=== PATIENT | female | born 1950 | race Caucasian/White ===

== ENCOUNTER 2016-07-12 12:53 | Outpatient (CLI) | payer MEDICARE, OTHER ==
[~2016-07-12] VITALS: Ht 170.3 cm; Wt 120.4 kg
[~2016-07-12 12:53] MED LIST: 00186-0372-20 IH; ARMOUR THYROID120 MG PO; ARMOUR THYROID15 MG PO; BYETTA; CALCIUM CITRAT200 MG PO; CARDIZEM CD 12120 MG PO; CARDIZEM CD 24240 MG PO; CARTIA XT240 MG PO; CATAPRES-T0.2 MG/24 TD; CATAPRES-TTS 20.2 M1; CATAPRES0.2 MG PO; CO ENZYME Q-1050 MG PO; CO Q-1010 M1 PO; CORDARONE200 MG/TAB PO; COREG 3.123.125 MG/T PO; COUMADIN 5MG5 MG/TAB PO; COUMADIN 6MG6 MG/TAB PO; CRANBERRY FRUI405 MG PO; CUMIN PO; DAILY MULTIPLE1 T19 PO; DIOVAN/HCT 12.51 TAB PO; DIOVAN160 MG PO; ERY-TAB250 MG PO; FERROUS SU325 MG/TAB PO; FLEXERIL 1010 MG/TAB PO; FLONASEALLERGY NS; FORTAMET1000 MG PO; GLIPIZIDE2.5 MG PO; GLUCOPHAGE1000 MG PO; GLUCOPHAGE500 MG/TAB PO; GLUCOTROL10 MG PO; IMODIUM 2MG CAPS2 MG PO; LANTUS100 U/ML; LANTUS100 U/ML SC; LASIX 20MG TABL20 MG PO; LASIX 40MG TABL40 MG PO; LEVEMIR; LEVEMIR100 U/ML SQ; LEVOTHYROXIN0.112 MG PO; LEVOXYL0.125 MG PO; LEXAPRO 10MG10 MG PO; LIPITOR 40MG TA40 MG PO; LIPITOR20 MG PO; LISINOPRIL20 MG PO; LOVENOX 100100 MG/ML SQ; MILK THISTLE150 MG PO; MULTIPLE VITAMI1 CAP PO; MVI; NEURONTIN300 MG/CAP PO; NIACIN 250250 MG/CAP PO; OMEGA 31000 MG PO; PACERONE100 MG PO; PROAIR HFA0.09 MG/AC IH; QUESTRAN LIGH4 G/PKT PO; QUESTRAN LITE 41 PKT PO; QUESTRAN4 GM/9 GM; REGLAN 5MG T5 MG/TAB PO; REGLAN 5MG5 MG PO; ROBAXIN 50500 MG/TAB PO; SYNTHROID0.125 MG/T PO; TRILIPIX 135MG PO; VIT E PO; VITAMIN E200 I1 PO; VITAMIND3 5000 PO; VOLTAREN GEL 1%1 TU TP; VTAMINC250TA PO; ZESTRIL 20MG TA20 MG PO; ZYRTEC 10MG10 MG PO
[2016-07-12 13:42] VITALS: BP 109/93; PULSE 66
[2016-07-12] MEDS ORDERED: CARTIA XT120 MG PO (13:47)
[2016-07-12] MEDS ORDERED: PACERONE200 MG PO (13:51)
[2016-07-12] MEDS ORDERED: NEURONTIN100 MG/CAP PO (13:52)
[2016-07-12] MEDS ORDERED: [UNRECOGNIZED DRUG - CODE] IH (13:55)
[2016-07-12] MEDS ORDERED: ZYLOPRIM 300MG300 MG PO (13:56)
[2016-07-12] MEDS ORDERED: CUTIVATE0.05% TOP (13:57)
[2016-07-12] MEDS ORDERED: LUMIGAN 2.5 ML2.5 M1 OP (13:57)
[2016-07-12 14:46] VITALS: BP 145/71; PULSE 58
[2016-07-12] MEDS ORDERED: CEPHALEXIN500 M1 PO (14:54)
== END 2016-07-12 15:58 | disposition home or self-care (01) ==
LOC: COL.RAD 12:53
DX: I35.0 Nonrheumatic aortic (valve) stenosis (principal); I48.0 Paroxysmal atrial fibrillation; E78.5 Hyperlipidemia, unspecified; I10 Essential (primary) hypertension
CPT/HCPCS: C1764

== ENCOUNTER → 2016-11-22 | Outpatient (CLI) | payer MEDICARE, OTHER ==
[~2016-11-22] MED LIST changes: +CARTIA XT120 MG PO; +CEPHALEXIN500 M1 PO; +CUTIVATE0.05% TOP; +LUMIGAN 2.5 ML2.5 M1 OP; +NEURONTIN100 MG/CAP PO; +PACERONE200 MG PO; +ZYLOPRIM 300MG300 MG PO; +[UNRECOGNIZED DRUG - CODE] IH
== END ==
LOC: COL.PUL 07:06
DX: I27.2 Other secondary pulmonary hypertension (principal)

== ENCOUNTER → 2017-01-28 | Outpatient (CLI) | payer MEDICARE, OTHER | LOC: MC.RAD 11:34 | DX: Z12.31 Encounter for screening mammogram for malignant neoplasm of breast (principal) ==

== ENCOUNTER 2017-07-18 16:29 | Emergency (ER) | payer MEDICARE, OTHER ==
[~2017-07-18] VITALS: Ht 170.2 cm; Wt 112.3 kg
[~2017-07-18 16:29] MED LIST changes: +00186-0370-20 IH; -00186-0372-20 IH; +ALBUTEROL0.83 MG/ML IH; +ATROVENTNS0.03% NS; +INCRUSE EL62.5 MCG/A IH; +PRAVACHOL 40MG40 MG PO; +XALATAN EYE DROPS OU
[2017-07-18 16:36] VITALS: TEMP 101.1
[2017-07-18 17:06] LABS: BASO # 0.1 (0.0-0.2); BASO % 0.3 % (0.0-2.0); EOS # 0.1 (0.0-0.7); EOS % 0.3 % (0-4.0); GRAN # 16.8 (1.4-6.5); GRAN % 90.2 % (42.2-75.2); LYMPH # 0.5 (1.2-3.4); LYMPH % 2.9 % (20.0-51.0); MEAN CELL VOLUME 90 fl (80.0-100.0); MEAN CORPUSCULAR HGB CONC 32 g/dl (33.0-37.0); MEAN PLATELET VOLUME 13.7 fl (7.4-10.4); MONO # 1.1 (0.1-0.6); MONO % 5.9 % (1.7-9.3); PLATELET COUNT 177 K/mm3 (130-400); RED BLOOD COUNT 3.07 M/mm3 (4.10-5.30); REDCELL DISTRIBUTION WIDTH-CV 18.8 % (11.5-14.5)
[2017-07-18 17:09] LABS: HEMATOCRIT 27.6 % (37.0-47.0); HEMOGLOBIN 8.7 g/dl (12.5-16.0); MEAN CORPUSCULAR HEMOGLOBIN 28 pg (27.0-31.0)
[2017-07-18 17:09] LABS: ARTERIAL BLD GAS O2 SATURATION 85.1 % (92-100); ARTERIAL BLD GAS TCO2 CT 25.4; ARTERIAL BLOOD GAS HCO3 24.4 meq/L (22-26); ARTERIAL BLOOD GAS PCO2 33.9 mmHg (35-45); ARTERIAL BLOOD GAS PO2 51.4 mmHg (80-100); ARTERIAL BLOOD GAS pH 7.48 (7.35-7.45)
[2017-07-18 17:19] LABS: ALBUMIN 3.7 gm/dL (3.5-5.0); BILIRUBIN,TOTAL 1.2 mg/dL (0.0-1.0); CALCIUM 8.6 mg/dL (8.4-10.2); CREATININE, serum 2.6 mg/dL (0.52-1.25); POTASSIUM 5.5 mmol/L (3.4-5.0); TOTAL PROTEIN 7.7 gm/dL (6.4-8.2)
[2017-07-18] MEDS ORDERED: CATAPRES 0.1MG0.1 MG PO (17:20)
[2017-07-18] MEDS ORDERED: JANUVIA50 MG PO (17:22)
[2017-07-18] MEDS ORDERED: CORDARONE200 MG/TAB PO (17:23)
[2017-07-18] MEDS ORDERED: LEVEMIR FLEX100 U/ML SQ (17:25)
[2017-07-18] MEDS ORDERED: ZAROXOLYN 2.52.5 MG PO (17:25)
[2017-07-18 17:39] LABS: C-REACTIVE PROTEIN 18.7 mg/dL (0.0-0.9)
[2017-07-18 21:00] VITALS: BP 120/76; PULSE 68
== END 2017-07-18 21:00 | disposition short-term general hospital (02) ==
LOC: COL.ER 16:29
PROVIDERS: Family Medicine
DX: I50.9 Heart failure, unspecified (principal); N28.9 Disorder of kidney and ureter, unspecified; R09.02 Hypoxemia; I27.20 Pulmonary hypertension, unspecified; R06.02 Shortness of breath; E11.9 Type 2 diabetes mellitus without complications; J44.9 Chronic obstructive pulmonary disease, unspecified; Z79.4 Long term (current) use of insulin; Z79.01 Long term (current) use of anticoagulants
CPT/HCPCS: J0456; J0696; J1940; J7050